=== PATIENT | male | born 1990 | race Caucasian/White ===

== ENCOUNTER 2016-12-20 20:44 | Emergency (ER) | payer OTHER ==
[2016-12-20] MEDS ORDERED: diphenhydrAMINE 25 MG CAP PO ONE (21:02)
[2016-12-20] MEDS ORDERED: OLANZapine 10 MG/2 ML VIAL IM ONE ×2 (21:21→21:30)
[2016-12-20] MEDS ORDERED: LORazepam 2 MG/ML INJ ONE (21:22)
[2016-12-20] MEDS ORDERED: LORazepam 2 MG/ML INJ IM ONE (21:30)
[2016-12-20 22:54] LABS: % IMMATURE GRANULYOCYTES 0.3 % (0.0-1.1); ABSOLUTE IMMATURE GRANULOCYTES 0.02 10^3/uL (0.00-0.10); ADD DIFF? NO; ADD MORPH? NO; ADD SCAN? NO; ATYPICAL LYMPHOCYTE FLAG 30 (0-99); FRAGMENT RBC FLAG 0 (0-99); HEMATOCRIT 39.3 % (40.0-51.0); HEMOGLOBIN 14.1 g/dL (13.7-17.5); LEFT SHIFT FLG 0 (0-99); LIPEMIA HEMOLYSIS FLAG 90 (0-99); MEAN CELL HEMOGLOBIN 31.8 pg (27.9-34.1); MEAN CELL HEMOGLOBIN CONCENTR. 35.9 g/dL (32.4-36.7); MEAN CELL VOLUME 88.7 fL (81.5-99.8); MEAN PLATELET VOLUME 11.3 fL (8.7-11.7); PLATELET CLUMPS FLAG 0 (0-99); PLATELET COUNT 167 10^3/uL (150-400); RED BLOOD CELL COUNT 4.43 10^6/uL (4.40-6.38); RED CELL DISTRIBUTION WIDTH 11.5 % (11.5-15.2)
[2016-12-20 23:04] LABS: CARBON DIOXIDE 23 mEq/l (22-31); CHLORIDE 104 mEq/L (97-110); POTASSIUM 3.4 mEq/L (3.5-5.2); SODIUM 138 mEq/L (134-144)
[2016-12-20 23:05] LABS: ANION GAP 11 mEq/L (8-16); CALCIUM 9.4 mg/dL (8.5-10.4); ETHANOL SERUM < 10 mg/dL (0-10); GLOMERULAR FILTRATION RATE > 60; GLUCOSE 80 mg/dL (70-100)
--- NOTE | 2016-12-20 23:13 | EDPHY ---
H & P Stated Complaint: per ems, roommates called police due pt being aggressive and throwing objec - Medical/Surgical History Other PMH: bipolar Time Seen by Provider: 12/20/16 20:52 HPI/ROS: Chief Complaint: Aggression, altered mental status, rash HPI: 25-year-old male brought in from his apartment after his rates called the police because the patient was getting increasingly erratic and throwing objects. Patient was noted to have a diffuse rash on his trunk and legs and was brought here medical clearance. Patient has been placed on a mental health hold by police. As he does have a history of bipolar disorder but is not currently taking any medications. Patient is not cooperative with history and physical. His answers are tangential and he he is antagonistic. Patient became increasingly aggressive. He required midazolam prior by EMS. He is awake and alert a confrontational. Denies any alcohol or drug use. Patient refusing to answer any other questions. He does state that he was itching and scratched his legs with a toilet brush to itch them. ROS: 10 point Review of Systems is negative except as noted in the HPI. PMH: Bipolar disorder Social History: Denies smoking, denies alcohol, denies other drug use Family History: non-contributory Physical Exam: Gen: Awake, Alert, agitated, aggressive HEENT: Nose: no rhinorrhea Eyes: PERRLA, EOMI Mouth: Moist mucosa Neck: Supple, no JVD Chest: nontender, lungs clear to auscultation Heart: S1, S2 normal, no murmur Abd: Soft, non-tender, no guarding Back: no CVA tenderness, no midline tenderness Ext: no edema, non-tender Skin: He has a blanching, urticarial rash on his trunk and lower extremities. He has got significant dermatographia on bilateral extremity secondary to the scratching from his toilet brush. Neuro: CN II-XII intact, Sensation grossly intact, Strength 5/5 in bilateral upper and lower extremities (Mehdi Womack) Constitutional: Initial Vital Signs Temperature (C) 36.6 C 12/20/16 20:51 Heart Rate 107 H 12/20/16 20:51 Respiratory Rate 18 12/20/16 20:51 Blood Pressure 129/73 H 12/20/16 20:51 O2 Sat (%) 95 12/20/16 20:51 O2 Delivery Mode Room Air O2 (L/minute) 2 Allergies/Adverse Reactions: peanut Allergy (Verified 12/20/16 21:15) Medical Decision Making ED Course/Re-evaluation: Patient increasingly aggressive. Required Zyprexa and Ativan. I have also given 50 mg of Benadryl for his rash and itching. Medical clearance labs have been sent. He has no edema the oropharynx or airway involvement. [address] patient signed out to Dr. Fraser pending medical clearance and mental health evaluation. (Mehdi Womack) 7:35 a.m.. Patient taking a shower. Still needing urinalysis for tox screen. Awaiting evaluation Tox screen is positive for benzodiazepines however the patient did receive Ativan to help with agitation in the emergency department Patient being evaluated by mental health (Antonio Ivey) Other Provider: 7:00 a.m.- The patient has been stable during my shift. He slept throughout much of it. We are still awaiting urinalysis from him. He then will have mental health evaluation. The case will be signed out to the oncoming provider Dr. Ivey. ( Carmen Fraser) Care Turn Over: Dr. Begum at 3:00 p.m. (Antonio Ivey) I assumed care of this patient Dr. Ivey at 3:00 p.m.. I was notified by the mental health team that he is being transferred to [facility]. I have signed the EMTALA form. I briefly met and examined the patient. He has no new complaints or requests. (Rosita Begum) - Data Points Laboratory Results: Laboratory Results 12/20/16 20:40 12/20/16 20:40 Medications Given: Discontinued Medications Diphenhydramine HCl (Benadryl) 50 mg PO EDNOW ONE Stop: 12/20/16 21:03 Last Admin: 12/20/16 21:11 Dose: 50 mg Lorazepam (Ativan Injection) 2 mg IM EDNOW ONE Stop: 12/20/16 21:31 Last Admin: 12/20/16 21:33 Dose: 2 mg Olanzapine (Zyprexa Im Injection) 10 mg IM EDNOW ONE Stop: 12/20/16 21:31 Last Admin: 12/20/16 21:33 Dose: 10 mg Departure - Departure Disposition: Other Psych, Not [place] Clinical Impression: Acute psychosis Condition: Good Referrals: Patient,NotPresent [Unknown] - As per Instructions
[2016-12-20 23:20] VITALS: RESP 16
[2016-12-21 16:45] VITALS: BP 108/67; PULSE 69; TEMP 98.6; O2SAT 97
== END 2016-12-21 17:40 ==
DX: F23 Brief psychotic disorder (principal); Z91.010 Allergy to peanuts
CPT/HCPCS: 80305; G0480; J2060